=== PATIENT | male | born 1965 | race Native Hawaiian/Other Pacific Islander ===

== ENCOUNTER 2016-08-03 11:52 | Emergency (ER) | payer OTHER ==
[~2016-08-03] VITALS: Ht 172.7 cm; Wt 77.1 kg
[2016-08-03 13:07] VITALS: BP 116/82; TEMP 98
== END 2016-08-03 13:13 | disposition home or self-care (01) ==
LOC: ED 11:52
DX: T63.441A Toxic effect of venom of bees, accidental (unintentional), initial encounter (principal)
CPT/HCPCS: 96374; 96375; 99284; J0171; J1100; J1200

== ENCOUNTER 2017-03-06 10:53 | Emergency (ER) | payer OTHER ==
[~2017-03-06] VITALS: Ht 172.7 cm; Wt 81.6 kg
[2017-03-06 15:42] VITALS: BP 124/82; TEMP 98.2
== END 2017-03-06 15:52 | disposition home or self-care (01) ==
LOC: ED 10:53
DX: S13.9XXA Sprain of joints and ligaments of unspecified parts of neck, initial encounter (principal); S16.1XXA Strain of muscle, fascia and tendon at neck level, initial encounter; R25.2 Cramp and spasm; M47.892 Other spondylosis, cervical region; M47.896 Other spondylosis, lumbar region; D35.2 Benign neoplasm of pituitary gland; W24.0XXA Contact with lifting devices, not elsewhere classified, initial encounter; Y92.89 Other specified places as the place of occurrence of the external cause
CPT/HCPCS: 99283

== ENCOUNTER 2017-05-10 09:41 | Outpatient (CLI) | payer OTHER | END 2017-05-10 21:50 | disposition home or self-care (01) | LOC: LABW 09:41 | DX: D35.2 Benign neoplasm of pituitary gland (principal) | CPT/HCPCS: 36415; 82024; 84305 ==

== ENCOUNTER 2017-11-20 07:40 | Outpatient (CLI) | payer OTHER | END 2017-11-20 22:09 | disposition home or self-care (01) | LOC: LABW 07:40 | DX: D35.2 Benign neoplasm of pituitary gland (principal) | CPT/HCPCS: 82533; 84402; 84403 ==

== ENCOUNTER 2018-07-28 16:41 | Emergency (ER) | payer OTHER ==
[~2018-07-28] VITALS: Ht 172.7 cm; Wt 81.6 kg
[2018-07-28 17:49] LABS: PLATELET COUNT 231 K/uL (142-355)
[2018-07-28 18:00] LABS: POTASSIUM 3.7 mmol/L (3.6-5.2)
[2018-07-28 19:00] VITALS: BP 118/81; TEMP 99.2
== END 2018-07-28 19:00 | disposition home or self-care (01) ==
LOC: ED 16:41
PROVIDERS: Family Medicine
DX: J02.0 Streptococcal pharyngitis (principal); R50.9 Fever, unspecified; D72.828 Other elevated white blood cell count
CPT/HCPCS: 36415; 80053; 85027; 87040; 87502; 87651; 96372; 99283; J0696; J2930

== ENCOUNTER 2018-10-02 08:16 | Outpatient (CLI) | payer OTHER | END 2018-10-02 23:05 | disposition home or self-care (01) | LOC: LABW 08:16 | DX: D35.2 Benign neoplasm of pituitary gland (principal) | CPT/HCPCS: 36415; 82565; 84520 ==

== ENCOUNTER 2019-10-13 13:49 | Outpatient (CLI) | payer OTHER | END 2019-10-13 20:38 | disposition home or self-care (01) | LOC: LAB 13:49 | DX: U07.1 COVID-19 (principal); R50.9 Fever, unspecified; R05 Cough; R51 Headache; Z20.828 Contact with and (suspected) exposure to other viral communicable diseases | CPT/HCPCS: 87635; G2023; U0002 ==

== ENCOUNTER 2019-10-28 10:01 | Outpatient (CLI) | payer OTHER | END 2019-10-28 20:23 | disposition home or self-care (01) | LOC: LAB 10:01 | DX: B34.2 Coronavirus infection, unspecified (principal) | CPT/HCPCS: 87635; G2023; U00003 ==

== ENCOUNTER 2019-10-29 08:13 | Outpatient (CLI) | payer OTHER | END 2019-10-29 22:50 | disposition home or self-care (01) | LOC: LABW 08:13 | DX: D35.2 Benign neoplasm of pituitary gland (principal) | CPT/HCPCS: 36415; 82565; 84520 ==

== ENCOUNTER 2020-03-02 08:13 | Outpatient (CLI) | payer OTHER ==
[2020-03-02 09:44] LABS: PLATELET COUNT 366 K/uL (142-355)
[2020-03-02 10:50] LABS: POTASSIUM 4.4 mmol/L (3.6-5.2)
== END 2020-03-02 20:21 | disposition home or self-care (01) ==
LOC: LABW 08:13
PROVIDERS: ATTEND Family Medicine
DX: Z87.898 Personal history of other specified conditions (principal); R79.89 Other specified abnormal findings of blood chemistry; E03.9 Hypothyroidism, unspecified; R35.1 Nocturia; Z84.2 Family history of other diseases of the genitourinary system
CPT/HCPCS: 36415; 80053; 80061; 81000; 84154; 84402; 84403; 84439; 84443; 85027

== ENCOUNTER 2020-04-13 09:38 | Outpatient (CLI) | payer OTHER | END 2020-04-13 20:01 | disposition home or self-care (01) | LOC: LABW 09:38 | PROVIDERS: ATTEND Family Medicine | DX: R74.8 Abnormal levels of other serum enzymes (principal) | CPT/HCPCS: 36415; 80074 ==

== ENCOUNTER 2020-06-15 11:18 | Day surgery (SDC) | payer OTHER ==
[2020-06-10 10:48] LABS: PLATELET COUNT 354 K/uL (142-355)
[2020-06-10 11:07] LABS: POTASSIUM 4.6 mmol/L (3.6-5.2)
[~2020-06-15] VITALS: Ht 30.5 cm; Wt 0.5 kg
== END 2020-06-15 14:27 | disposition home or self-care (01) ==
LOC: OR 11:18
PROVIDERS: ATTEND Internal Medicine Gastroenterology
PROC: 0DBP8ZZ Excision of Rectum, Via Natural or Artificial Opening Endoscopic (ICD-10-PCS; principal; 2020-06-15)
DX: K62.1 Rectal polyp (principal); K57.30 Diverticulosis of large intestine without perforation or abscess without bleeding; K64.8 Other hemorrhoids; Z12.11 Encounter for screening for malignant neoplasm of colon; Z20.828 Contact with and (suspected) exposure to other viral communicable diseases
CPT/HCPCS: 80053; 85027; 87635; J2001; J2704; U0003

== ENCOUNTER 2020-08-15 07:36 | Outpatient (CLI) | payer OTHER ==
[2020-08-15 09:11] LABS: PLATELET COUNT 333 K/uL (142-355)
[2020-08-15 09:32] LABS: POTASSIUM 4.5 mmol/L (3.6-5.2); SODIUM 139 mmol/L (136-145)
== END 2020-08-15 19:11 | disposition home or self-care (01) ==
LOC: LABW 07:36
PROVIDERS: ATTEND Family Medicine
DX: D64.9 Anemia, unspecified (principal); R74.8 Abnormal levels of other serum enzymes; E78.2 Mixed hyperlipidemia; E03.9 Hypothyroidism, unspecified; R79.89 Other specified abnormal findings of blood chemistry
CPT/HCPCS: 36415; 80053; 80061; 81000; 84402; 84403; 84439; 84443; 85027

== ENCOUNTER 2020-12-02 08:11 | Outpatient (CLI) | payer OTHER | END 2020-12-02 19:04 | disposition home or self-care (01) | LOC: LABW 08:11 | PROVIDERS: ATTEND Obstetrics & Gynecology | DX: D32.1 Benign neoplasm of spinal meninges (principal) | CPT/HCPCS: 36415; 82565; 84520 ==

== ENCOUNTER 2021-04-13 08:09 | Outpatient (CLI) | payer OTHER ==
[2021-04-13 08:27] LABS: PLATELET COUNT 304 K/uL (142-355)
[2021-04-13 08:52] LABS: POTASSIUM 4.4 mmol/L (3.6-5.2)
== END 2021-04-13 18:43 | disposition home or self-care (01) ==
LOC: LABW 08:09
PROVIDERS: ATTEND Family Medicine
DX: D64.9 Anemia, unspecified (principal); R03.0 Elevated blood-pressure reading, without diagnosis of hypertension; R79.89 Other specified abnormal findings of blood chemistry; E03.9 Hypothyroidism, unspecified; E78.2 Mixed hyperlipidemia; R35.1 Nocturia; E55.9 Vitamin D deficiency, unspecified
CPT/HCPCS: 36415; 80053; 80061; 81000; 82306; 84154; 84402; 84403; 84439; 84443; 85027

== ENCOUNTER 2021-04-19 08:54 | Outpatient (CLI) | payer OTHER | END 2021-04-19 19:56 | disposition home or self-care (01) | LOC: LABW 08:54 | PROVIDERS: ATTEND Family Medicine | DX: D64.9 Anemia, unspecified (principal) | CPT/HCPCS: 36415; 82728; 83540; 83550 ==

== ENCOUNTER 2021-06-08 14:13 | Emergency (ER) | payer OTHER ==
[~2021-06-08] VITALS: Ht 172.7 cm; Wt 81.6 kg
[2021-06-08 14:18] VITALS: BP 121/59; TEMP 98.1
== END 2021-06-08 16:48 | disposition home or self-care (01) ==
LOC: ED 14:13
DX: T63.441A Toxic effect of venom of bees, accidental (unintentional), initial encounter (principal); R06.02 Shortness of breath; T78.40XA Allergy, unspecified, initial encounter; X58.XXXA Exposure to other specified factors, initial encounter; Y92.89 Other specified places as the place of occurrence of the external cause
CPT/HCPCS: 94664; 96360; 96375; 99284; J1200; J2405; J2930

== ENCOUNTER 2021-07-12 14:17 | Outpatient (CLI) | payer OTHER | END 2021-07-12 19:01 | disposition home or self-care (01) | LOC: LABW 14:17 | PROVIDERS: ATTEND Internal Medicine Gastroenterology | DX: K64.0 First degree hemorrhoids (principal) | CPT/HCPCS: 82272 ==

== ENCOUNTER 2021-12-13 08:01 | Outpatient (CLI) | payer OTHER | END 2021-12-13 18:54 | disposition home or self-care (01) | LOC: LABW 08:01 | PROVIDERS: ATTEND Neurological Surgery | DX: D35.2 Benign neoplasm of pituitary gland (principal) | CPT/HCPCS: 82565; 84520 ==

== ENCOUNTER 2022-01-12 08:32 | Emergency (ER) | payer OTHER ==
[~2022-01-12] VITALS: Ht 172.7 cm; Wt 81.6 kg
[2022-01-12 08:37] VITALS: TEMP 97.2
[2022-01-12 09:47] LABS: PLATELET COUNT 347 K/uL (142-355)
[2022-01-12 09:54] LABS: POTASSIUM 4.2 mmol/L (3.6-5.2)
[2022-01-12 12:40] LABS: POTASSIUM 4.8 mmol/L (3.6-5.2)
[2022-01-12 14:05] VITALS: BP 102/64
== END 2022-01-12 14:05 | disposition home or self-care (01) ==
LOC: ED 08:32
PROVIDERS: Internal Medicine
DX: E87.1 Hypo-osmolality and hyponatremia (principal); R51.9 Headache, unspecified; Z98.890 Other specified postprocedural states
CPT/HCPCS: 80048; 85027; 96374; 99284

== ENCOUNTER 2022-01-15 09:46 | Outpatient (CLI) | payer OTHER ==
[2022-01-15 10:29] LABS: PLATELET COUNT 410 K/uL (142-355)
[2022-01-15 10:44] LABS: POTASSIUM 4.5 mmol/L (3.6-5.2)
== END 2022-01-15 20:41 | disposition home or self-care (01) ==
LOC: LABW 09:46
PROVIDERS: ATTEND Family Medicine
DX: R05.9 Cough, unspecified (principal); E87.1 Hypo-osmolality and hyponatremia
CPT/HCPCS: 80053; 85027

== ENCOUNTER 2022-04-13 09:30 | Outpatient (CLI) | payer OTHER | END 2022-04-13 23:36 | disposition home or self-care (01) | LOC: RAD 09:30 | PROVIDERS: ATTEND Family Medicine | DX: M54.89 Other dorsalgia (principal); M54.42 Lumbago with sciatica, left side; M54.41 Lumbago with sciatica, right side ==

== ENCOUNTER 2022-05-07 10:18 | Outpatient (CLI) | payer OTHER | END 2022-05-07 19:23 | disposition home or self-care (01) | LOC: RAD 10:18 | PROVIDERS: ATTEND Family Medicine | DX: R10.9 Unspecified abdominal pain (principal); R19.7 Diarrhea, unspecified | CPT/HCPCS: 82272; 87015; 87045; 87324; 87328; 87329; 87449; 87899 ==

== ENCOUNTER 2022-07-30 08:20 | Outpatient (CLI) | payer OTHER | END 2022-07-30 21:04 | disposition home or self-care (01) | LOC: LABW 08:20 | PROVIDERS: ATTEND Neurological Surgery | DX: D35.2 Benign neoplasm of pituitary gland (principal) | CPT/HCPCS: 36415; 82565; 84520 ==

== ENCOUNTER 2022-12-20 09:03 | Outpatient (CLI) | payer OTHER | END 2022-12-20 19:25 | disposition home or self-care (01) | LOC: LABW 09:03 | PROVIDERS: ATTEND Neurological Surgery | DX: D35.2 Benign neoplasm of pituitary gland (principal) | CPT/HCPCS: 36415; 82565; 84520 ==